=== PATIENT | female | born 1965 | race Hispanic/Latino ===

== ENCOUNTER 2018-02-10 20:13 | Emergency (ER) | payer OTHER ==
[~2018-02-10 20:13] MED LIST: ISOVUE-370 76%-LOCM 1 ML ONE
[2018-02-10] MEDS ORDERED: methylPREDNISolone Sod Succ/PF 125 MG/2 ML VIAL ONE (21:26)
[2018-02-10] MEDS ORDERED: Famotidine 40 MG/4 ML VIAL SLOW IVP SCH (21:30)
[2018-02-10 22:09] LABS: #Eosinphils 0.1 thou/uL (0.0-0.7); #Lymphocytes 3.2 thou/uL (1.20-3.40); #Monocytes 0.5 thou/uL (0.11-0.59); #Neutrophils 3.5 thou/uL (1.40-6.50); %Basophils 0.3 % (0.0-1.0); %Monocytes 7.2 % (0.0-10.0); %Neutrophils 47.5 % (42.0-75.0); Hemoglobin 12.8 g/dL (12.0-16.0); Mean Corpuscular HGB CONC 32.8 g/dL (32.0-36.0); Mean Corpuscular Hemoglobin 30.2 pg (27.0-31.0); Mean Corpuscular Volume 92.1 fl (81.0-99.0); Mean Platelet Volume 6.8 fL (7.4-10.4); Platelet Count 326 thou/uL (130-400); RBC Distribution Width 12.4 % (11.5-14.5); Red Blood Cell (RBC) Count 4.24 mill/uL (4.20-5.40); White Blood Cell (WBC) Count 7.4 thou/uL (4.8-10.8)
[2018-02-10 22:34] LABS: ALT (SGPT) 46 U/L (8-55); AST (SGOT) 42 U/L (5-34); Albumin 4.4 g/dL (3.5-5.0); Alkaline Phosphatase 78 U/L (40-150); Anion Gap 18 mmol/L (10-20); BUN (Urea Nitrogen) 23 mg/dL (9.8-20.1); Bilirubin, Total Less than 0.2 mg/dL (0.2-1.2); Calc. Creatinine Clearance 0 mL/min (70-130); Calcium 9.9 mg/dL (7.8-10.44); Carbon Dioxide 21 mmol/L (22-29); Chloride 105 mmol/L (98-107); Estimated GFR-MDRD 82; Globulin 3.2 g/dL (2.4-3.5); Glucose 127 mg/dL (70-105); Potassium 4.2 mmol/L (3.5-5.1); Protein, Total 7.6 g/dL (6.0-8.3); Sodium 140 mmol/L (136-145)
--- NOTE | 2018-02-11 09:10 | CT ---
PRELIMINARY REPORT/[facility]/EMERGENTY AFTER-HOURS PROCEDURE CT Maxillofacial With Intravenous Contrast CLINICAL HISTORY: 52 years old, female; Pain; Face pain; Patient HX: Pain, swelling TECHNIQUE: Axial computed tomography images of the face with intravenous contrast. CONTRAST: 100 mL of ISOVUE administered intravenously. COMPARISON: No relevant prior studies available. FINDINGS: Bones/joints: No acute fracture. Soft tissues: Mild right cheek swelling Orbits: Unremarkable. Sinuses: Opacified non-dominant right sphenoid sinus IMPRESSION: Mild nonspecific cheek swelling. Findings may be odontogenic in origin. No definite abscess. Right sphenoid sinusitis suspected Thank you for allowing us to participate in the care of your patient. Dictated and Authenticated by: Krzysztof Mccormick MD 02/11/2018 1:14 AM Central Time ([place] & [place]) FINAL REPORT EMERGENCY AFTER HOURS CT FACIAL BONES PERFORMED WITH IV CONTRAST ENHANCEMENT: Date: 02/10/18 HISTORY: Facial swelling. FINDINGS: The visualized brain parenchyma is unremarkable. There is mucosal disease within the right sphenoid a ir cell, extending towards the sphenoethmoid recess region. The remainder of the sinuses appear clear . No fractures are identified. There is scan artifact related to patient's dental hardware. This obscures detail in this region. The re appears to be some minimal right cheek swelling, but I do not see any signs of abscess. It is diff icult to identify any etiology given the artifact. This could be of dental origin. IMPRESSION: 1. Mild right cheek swelling, possibly odontogenic in origin. 2. Right sphenoid sinus disease. This report is in agreement with the preliminary report issued by [facility]. POS: [facility]
== END 2018-02-11 01:55 | disposition home or self-care (01) ==
LOC: ERS 20:13
DX: J32.9 Chronic sinusitis, unspecified (principal); E11.9 Type 2 diabetes mellitus without complications; I10 Essential (primary) hypertension
CPT/HCPCS: 36415; 70487; 80053; 85025; 86850; 86900; 86901; 96361; 96374; 96375; J2930

== ENCOUNTER 2018-02-17 15:14 | Outpatient (CLI) | payer OTHER ==
--- NOTE | 2018-02-20 15:59 | MMO ---
BILATERAL MAMMOGRAMS 02/17/18 HISTORY: Screening mammography. COMPARISON: None are available. Baseline study. FINDINGS: Scattered fibroglandular densities and benign appearing calcifications are apparent. Multiple partial ly obscured oval and nodular hypodense nodules of varying size are present throughout each breast and consistent with benign process. Skin marker indicates scar on the right breast. No dominant mass or suspicious calcifications. Study was evaluated with the assistance of computer aided detection. IMPRESSION: BI-RADS 2: Benign Finding(s) Routine annual screening mammography (for women over age 40). POS: [facility]
== END 2018-02-17 15:15 | disposition home or self-care (01) ==
LOC: SCSMAMMO 15:14
PROVIDERS: ATTEND Family Medicine
DX: Z12.31 Encounter for screening mammogram for malignant neoplasm of breast (principal)
CPT/HCPCS: 77067

== ENCOUNTER 2019-09-10 23:36 | Emergency (ER) | payer OTHER ==
--- NOTE | 2019-09-11 00:02 | RAD ---
Chest one view HISTORY: Chest pain. FINDINGS: No comparison. Cardiac silhouette is magnified by projection. Pulmonary vasculature is unre markable. Mediastinum is midline. No lobar consolidation or evidence of pneumothorax. quality assurance monitor body leads overlie the chest. IMPRESSION: No active cardiopulmonary abnormalities are demonstrated.
[2019-09-11 00:58] LABS: ALT (SGPT) 41 U/L (8-55); AST (SGOT) 25 U/L (5-34); Albumin 4.6 g/dL (3.5-5.0); Alkaline Phosphatase 107 U/L (40-110); Anion Gap 15 mmol/L (10-20); BUN (Urea Nitrogen) 17 mg/dL (9.8-20.1); Bilirubin, Total 0.2 mg/dL (0.2-1.2); CK (CPK) 176 U/L (29-168); Calc. Creatinine Clearance 0 mL/min (70-130); Calcium 9.6 mg/dL (7.8-10.44); Carbon Dioxide 24 mmol/L (22-29); Chloride 99 mmol/L (98-107); Estimated GFR-MDRD 80; Globulin 2.9 g/dL (2.4-3.5); Glucose 132 mg/dL (70-105); Potassium 3.4 mmol/L (3.5-5.1); Protein, Total 7.5 g/dL (6.0-8.3); Sodium 135 mmol/L (136-145)
[2019-09-11] MEDS ORDERED: Morphine 4 MG/ML VIAL ONE (01:10)
[2019-09-11] MEDS ORDERED: Ondansetron PF 4 MG/2 ML Vial ONE (01:11)
[2019-09-11] MEDS ORDERED: Aspirin Chewable 81 MG TAB ONE (01:11)
[2019-09-11 01:42] LABS: #Basophils 0.1 thou/uL (0.0-0.2); #Eosinphils 0.2 thou/uL (0.0-0.7); #Lymphocytes 2.8 thou/uL (1.20-3.40); #Monocytes 0.7 thou/uL (0.11-0.59); #Neutrophils 6.6 thou/uL (1.40-6.50); %Basophils 0.6 % (0.0-1.0); %Eosinophils 1.7 % (0.0-10.0); %Lymphocytes 27.3 % (21.0-51.0); %Monocytes 6.7 % (0.0-10.0); %Neutrophils 63.7 % (42.0-75.0); Hemoglobin 13.8 g/dL (12.0-16.0); Mean Corpuscular Hemoglobin 31.3 pg (27.0-31.0); Mean Corpuscular Volume 89.5 fL (78.0-98.0); Mean Platelet Volume 6.7 fL (7.4-10.4); Platelet Count 317 thou/uL (130-400); RBC Distribution Width 11.6 % (11.5-14.5); Red Blood Cell (RBC) Count 4.41 mill/uL (4.20-5.40); White Blood Cell (WBC) Count 10.4 thou/uL (4.8-10.8)
== END 2019-09-11 02:55 | disposition home or self-care (01) ==
LOC: ERS 23:36
DX: R07.9 Chest pain, unspecified (principal); E11.9 Type 2 diabetes mellitus without complications; I10 Essential (primary) hypertension; E78.5 Hyperlipidemia, unspecified; Z79.899 Other long term (current) drug therapy
CPT/HCPCS: 36415; 71045; 80053; 82550; 84484; 85025; 93005; 94760; 96374; 96375; J2270; J2405

== ENCOUNTER 2019-11-10 16:37 | Emergency (ER) | payer OTHER ==
[2019-11-10 18:23] LABS: #Basophils 0.1 thou/uL (0.0-0.2); #Eosinphils 0.2 thou/uL (0.0-0.7); #Lymphocytes 2.6 thou/uL (1.20-3.40); #Monocytes 0.5 thou/uL (0.11-0.59); #Neutrophils 3.5 thou/uL (1.40-6.50); %Basophils 1.1 % (0.0-1.0); %Eosinophils 2.5 % (0.0-10.0); %Monocytes 7.3 % (0.0-10.0); %Neutrophils 51.3 % (42.0-75.0); Hemoglobin 14.1 g/dL (12.0-16.0); Mean Corpuscular HGB CONC 33.8 g/dL (32.0-36.0); Mean Corpuscular Hemoglobin 30.7 pg (27.0-31.0); Mean Corpuscular Volume 90.7 fL (78.0-98.0); Mean Platelet Volume 7.1 fL (7.4-10.4); Platelet Count 327 thou/uL (130-400); RBC Distribution Width 11.8 % (11.5-14.5); White Blood Cell (WBC) Count 6.9 thou/uL (4.8-10.8)
[2019-11-10 18:43] LABS: ALT (SGPT) 27 U/L (8-55); AST (SGOT) 22 U/L (5-34); Albumin 4.6 g/dL (3.5-5.0); Alkaline Phosphatase 100 U/L (40-110); Anion Gap 14 mmol/L (10-20); BUN (Urea Nitrogen) 11 mg/dL (9.8-20.1); Bilirubin, Total 0.2 mg/dL (0.2-1.2); Calc. Creatinine Clearance 0 mL/min (70-130); Calcium 9.6 mg/dL (7.8-10.44); Carbon Dioxide 31 mmol/L (22-29); Chloride 99 mmol/L (98-107); Estimated GFR-MDRD 78; Globulin 3.2 g/dL (2.4-3.5); Glucose 175 mg/dL (70-105); Potassium 3.7 mmol/L (3.5-5.1); Protein, Total 7.8 g/dL (6.0-8.3); Sodium 140 mmol/L (136-145)
== END 2019-11-10 21:38 | disposition home or self-care (01) ==
LOC: ERS 16:37
DX: N93.9 Abnormal uterine and vaginal bleeding, unspecified (principal); E11.9 Type 2 diabetes mellitus without complications; E78.5 Hyperlipidemia, unspecified; I10 Essential (primary) hypertension; F32.9 Major depressive disorder, single episode, unspecified; Z79.899 Other long term (current) drug therapy
CPT/HCPCS: 36415; 80053; 85025; 86850; 86900; 86901; 99284

== ENCOUNTER 2019-12-21 06:53 | Outpatient (CLI) | payer OTHER ==
[2019-12-21 17:38] LABS: Hemoglobin 13.5 g/dL (12.0-16.0); Mean Corpuscular HGB CONC 34.5 g/dL (32.0-36.0); Mean Corpuscular Hemoglobin 31.4 pg (27.0-31.0); Mean Corpuscular Volume 90.8 fL (78.0-98.0); Platelet Count 317 thou/uL (130-400); RBC Distribution Width 11.8 % (11.5-14.5); Red Blood Cell (RBC) Count 4.29 mill/uL (4.20-5.40); White Blood Cell (WBC) Count 7.3 thou/uL (4.8-10.8)
[2019-12-21 17:59] LABS: Anion Gap 16 mmol/L (10-20); BUN (Urea Nitrogen) 13 mg/dL (9.8-20.1); Calc. Creatinine Clearance 0 mL/min (70-130); Calcium 9.5 mg/dL (7.8-10.44); Carbon Dioxide 28 mmol/L (22-29); Chloride 101 mmol/L (98-107); Estimated GFR-MDRD Greater than 90; Glucose 94 mg/dL (70-105); Potassium 3.5 mmol/L (3.5-5.1); Sodium 141 mmol/L (136-145)
--- NOTE | 2019-12-22 11:58 | EKG ---
Test Reason : Blood Pressure : / mmHG Vent. Rate : 074 BPM Atrial Rate : 074 BPM P-R Int : 150 ms QRS Dur : 078 ms QT Int : 416 ms P-R-T Axes : 068 035 041 degrees QTc Int : 461 ms Normal sinus rhythm Normal ECG No previous ECGs available Confirmed by DR. Elsy CANDELARIO ([id number]) on 12/22/2019 11:58:37 AM Referred By: GAIL Confirmed By:DR. Elsy CANDELARIO
== END 2019-12-21 06:54 | disposition home or self-care (01) ==
LOC: LABBT 06:53
PROVIDERS: ATTEND Obstetrics & Gynecology
DX: Z01.818 Encounter for other preprocedural examination (principal); T83.711A Erosion of implanted vaginal mesh to surrounding organ or tissue, initial encounter
CPT/HCPCS: 80048; 85027; 86850; 86900; 86901; 93005; 93010

== ENCOUNTER 2019-12-22 08:54 | Day surgery (SDC) | payer OTHER ==
--- NOTE | 2019-12-20 13:52 | HP ---
HISTORY OF PRESENT ILLNESS: Ms. Pleitez is a 54-year-old female with a history of previous hysterectomy with genital prolapse issues, where she underwent hysterectomy prolapse surgery in [place], [place]. She is unsure exactly what was done, but she recently reported to my office on November 17 for complaint of vaginal bleeding and discomfort and also pain that her and her are experiencing when she was having intercourse. This problem has been ongoing for over 6 months. I saw the patient in my office on the 17 of November and on exam, she has evidence of a mesh erosion on the posterior vagina and the upper mid portion of the posterior vagina. PAST MEDICAL HISTORY: Significant for hypertension, hyperlipidemia, and diabetes. As noted, hysterectomy lead to pelvic prolapse, what appears to mesh placement. CURRENT MEDICATIONS: 1. Atorvastatin 40 mg. 2. Hydrochlorothiazide 12.5 mg. 3. Metformin 1000 mg daily. 4. Premarin vaginal cream was started, 1 g three times a week for a month due to the prolapse for the mesh erosion. FAMILY HISTORY: Noncontributory. SOCIAL HISTORY: Nonsmoker. No excessive alcohol use or drug use. PHYSICAL EXAMINATION: VITAL SIGNS: Height 5 feet 4 inches, weight 136, and BMI 26.6. Blood pressure 122/88, pulse 91, respirations 18, and O2 saturation on room air 99%. HEENT: Within normal limits. CHEST: Clear to auscultation. HEART: Regular rate and rhythm. S1 and S2, heart sounds. No murmurs, rubs, or gallops. ABDOMEN: Soft, nontender, and nondistended. PELVIC: Vulva and vagina had no lesions. She is status post hysterectomy with absent cervix. On evaluation of the vagina, there was an obvious mesh erosion noted in the upper mid half of the vagina on the posterior wall. There are no pelvic masses on exam. No parametrial masses. RECTAL: Exam was performed and no evidence of mesh erosion into the rectal mucosa was appreciated. ASSESSMENT: This is a 54-year-old female with mesh erosion in posterior vaginal wall. PLAN: For excision of mesh erosion in the operating room. The patient has been on 1 g of Premarin cream three times weekly for over 4 weeks preoperatively. The risk of the procedure have been discussed in detail. Possibility including infection, inadvertent entry into the rectum necessitating further repair, also recurrence of the mesh erosion. Plan is for the surgery to be on 12/22/2019. Job ID: [id number]
[2019-12-21 16:34] VITALS: BMI 27.4
[2019-12-22] MEDS ORDERED: Lidocaine 1% PF 5 ML VIAL ONE (09:21)
[2019-12-22] MEDS ORDERED: Dexamethasone 20 MG/5 ML VIAL ONE (09:21)
[2019-12-22] MEDS ORDERED: Ondansetron PF 4 MG/2 ML Vial ONE (09:21)
[2019-12-22] MEDS ORDERED: PROPOFOL 200 MG/20 ML VIAL ONE (09:21)
[2019-12-22] MEDS ORDERED: PHENYLEPHRINE-NS 100 MCG/ML 10 ML SYRINGE ONE (09:21)
[2019-12-22] MEDS ORDERED: Gabapentin 300 MG CAP ONE (09:39)
[2019-12-22] MEDS ORDERED: Famotidine/PF 20 mg/2ml Vial ONE (09:39)
[2019-12-22] MEDS ORDERED: Lidocaine 1% w/Epinephrine 1:100K 20 ML VIAL ONE (12:10)
[2019-12-22] MEDS ORDERED: Fentanyl 100 MCG/2 ML VIAL ONE (12:13)
[2019-12-22] MEDS ORDERED: HYDROcodone/Acetaminophen 5/325 mg Tablet ONE (17:02)
--- NOTE | 2019-12-22 20:09 | OP ---
DATE OF PROCEDURE: 12/22/2019 PREOPERATIVE DIAGNOSES: 1. A 54-year-old [place] female, with history of hysterectomy and previous pelvic prolapse surgical repair in [place], [place]. 2. Recent noted posterior vaginal mesh erosion. POSTOPERATIVE DIAGNOSES: 1. A 54-year-old [place] female, with history of hysterectomy and previous pelvic prolapse surgical repair in [place], [place]. 2. Recent noted posterior vaginal mesh erosion. PROCEDURE PERFORMED: Excision of vaginal mesh erosion in the posterior mid vagina and repair of posterior vaginal wall defect. SERVICE PARTS DRIVER SURGEON: Florence Quiñonez PA-C. ANESTHESIA: General endotracheal. ESTIMATED BLOOD LOSS: Less than 10 mL. COMPLICATIONS: None. FINDINGS: 1. There was approximately 1.5 x 1 cm posterior vaginal mesh erosion that was in the midportion of the posterior vaginal wall midway in the vault. 2. On exam under anesthesia, there was no evidence of rectal mucosal mesh involvement. Rectum was intact post mesh excision. DISPOSITION: Recovery room, then plan for discharge home from Day Stay. DESCRIPTION OF PROCEDURE: The patient previously received informed consent in regard to surgery. She was taken back to the operating room, where she received a general endotracheal anesthetic agent. She was placed in the dorsal lithotomy position with the use of Boby stirrups. The patient had voided prior to arrival in the operating room. An exam under anesthesia was performed with a noted mesh in the midportion of the posterior vaginal wall. A rectal exam confirmed no obvious involvement of the mesh in the rectal mucosa. The edges of the vaginal mucosa around the eroded mesh were grasped with Allis clamps. The mucosa was infiltrated with 1% lidocaine with epinephrine for hemostasis and also hydrodissection. I then was able to dissect the eroded vaginal mesh underneath the vaginal mucosa that had been hydrodissected with the Metzenbaum scissors. Freeing the exposed mesh, the mesh was trimmed down to the endopelvic fascial level. Once the mesh had been removed and the area underneath the planned closure of the vaginal mucosa was free of any mesh remnant, rectal exam with an additional glove was performed. There was no evidence of any rectal injury noted on exam, and no evidence of any further mesh in this region. I then exchanged the dirty glove and then we closed the vaginal wall defect with 2-0 Vicryl suture incorporating some of the endopelvic fascia for hemostasis and closure of the posterior vaginal mucosa. This was closed with interrupted [id number] sutures. Good hemostasis was confirmed. A moistened Kerlix was then placed in the vagina. The patient was transferred to recovery room in stable condition. Plan for discharge home later today from Day Stay. Job ID: [id number]
== END 2019-12-22 17:26 | disposition home or self-care (01) ==
LOC: SDC 08:54
PROVIDERS: ATTEND Obstetrics & Gynecology
PROC: 0UPH7YZ Removal of Other Device from Vagina and Cul-de-sac, Via Natural or Artificial Opening (ICD-10-PCS; principal; 2019-12-22)
DX: T83.711A Erosion of implanted vaginal mesh to surrounding organ or tissue, initial encounter (principal); I10 Essential (primary) hypertension; E78.5 Hyperlipidemia, unspecified; E11.9 Type 2 diabetes mellitus without complications; Z79.84 Long term (current) use of oral hypoglycemic drugs; Z79.899 Other long term (current) drug therapy
CPT/HCPCS: J0690; J1100; J2001; J2405; J2704; J3010; S0028

== ENCOUNTER 2021-03-29 14:19 | Outpatient (CLI) | payer OTHER | END 2021-03-29 14:20 | disposition home or self-care (01) | LOC: BICULT 14:19 | PROVIDERS: ATTEND Family Medicine | DX: I88.9 Nonspecific lymphadenitis, unspecified (principal) | CPT/HCPCS: 76536 ==

== ENCOUNTER 2021-08-10 21:18 | Emergency (ER) | payer OTHER ==
[2021-08-10 21:59] LABS: #Basophils 0.1 thou/uL (0.0-0.2); #Eosinphils 0.2 thou/uL (0.0-0.7); #Lymphocytes 3.4 thou/uL (1.20-3.40); #Monocytes 0.5 thou/uL (0.11-0.59); #Neutrophils 3.1 thou/uL (1.40-6.50); %Basophils 0.7 % (0.0-1.0); %Eosinophils 2.5 % (0.0-10.0); %Monocytes 6.6 % (0.0-10.0); %Neutrophils 43.1 % (42.0-75.0); Hemoglobin 13.6 g/dL (12.0-16.0); Mean Corpuscular HGB CONC 34.1 g/dL (32.0-36.0); Mean Corpuscular Hemoglobin 30.6 pg (27.0-31.0); Mean Corpuscular Volume 89.8 fL (78.0-98.0); Mean Platelet Volume 6.9 fL (7.4-10.4); Platelet Count 352 thou/uL (130-400); RBC Distribution Width 11.8 % (11.5-14.5); Red Blood Cell (RBC) Count 4.46 mill/uL (4.20-5.40); White Blood Cell (WBC) Count 7.2 thou/uL (4.8-10.8)
[2021-08-10] MEDS ORDERED: Acetaminophen 500 MG TAB ONE (22:10)
[2021-08-10 22:19] LABS: ALT (SGPT) 42 U/L (8-55); AST (SGOT) 32 U/L (5-34); Albumin 4.1 g/dL (3.5-5.0); Alkaline Phosphatase 97 U/L (40-110); Anion Gap 13 mmol/L (10-20); BUN (Urea Nitrogen) 11 mg/dL (9.8-20.1); Bilirubin, Total 0.2 mg/dL (0.2-1.2); Calc. Creatinine Clearance 0 mL/min (70-130); Calcium 9.6 mg/dL (7.8-10.44); Carbon Dioxide 29 mmol/L (22-29); Chloride 101 mmol/L (98-107); Globulin 3.3 g/dL (2.4-3.5); Glucose 205 mg/dL (70-105); Potassium 3.2 mmol/L (3.5-5.1); Protein, Total 7.4 g/dL (6.0-8.3); Sodium 140 mmol/L (136-145)
[2021-08-10] MEDS ORDERED: Ketorolac Tromethamine 30 MG/ML VIAL ONE (22:46)
== END 2021-08-10 23:53 | disposition home or self-care (01) ==
LOC: ERS 21:18
DX: R51.9 Headache, unspecified (principal); I10 Essential (primary) hypertension; E11.9 Type 2 diabetes mellitus without complications; E78.5 Hyperlipidemia, unspecified; Z79.84 Long term (current) use of oral hypoglycemic drugs; Z79.899 Other long term (current) drug therapy
CPT/HCPCS: 70450; 80053; 85025; 96374; J1885

== ENCOUNTER 2022-11-14 14:15 | Outpatient (CLI) | payer OTHER | END 2022-11-14 14:16 | disposition home or self-care (01) | LOC: ULT 14:15 | PROVIDERS: ATTEND Student in an Organized Health Care Education/Training Program | DX: R22.1 Localized swelling, mass and lump, neck (principal); E04.2 Nontoxic multinodular goiter | CPT/HCPCS: 76536 ==

== ENCOUNTER 2023-01-28 13:09 | Day surgery (SDC) | payer OTHER ==
[2023-01-28] MEDS ORDERED: Sodium Bicarbonate 2.5 MEQ/5 ML VIAL ONE (13:20)
[2023-01-28] MEDS ORDERED: Lidocaine 1% PF 5 ML VIAL ONE (13:20)
[2023-01-28 15:26] VITALS: BP 131/80
== END 2023-01-28 14:45 | disposition home or self-care (01) ==
LOC: ULT 13:09
PROVIDERS: ATTEND Student in an Organized Health Care Education/Training Program
PROC: 0GBG3ZX Excision of Left Thyroid Gland Lobe, Percutaneous Approach, Diagnostic (ICD-10-PCS; principal; 2023-01-28)
DX: E04.1 Nontoxic single thyroid nodule (principal); I10 Essential (primary) hypertension; E78.5 Hyperlipidemia, unspecified; E11.9 Type 2 diabetes mellitus without complications; Z79.84 Long term (current) use of oral hypoglycemic drugs; Z79.82 Long term (current) use of aspirin; Z79.899 Other long term (current) drug therapy
CPT/HCPCS: 10005; 88173; 88305

== ENCOUNTER 2023-06-03 14:16 | Outpatient (CLI) | payer OTHER | END 2023-06-03 14:17 | disposition home or self-care (01) | LOC: BICMAMMO 14:16 | PROVIDERS: ATTEND Student in an Organized Health Care Education/Training Program | DX: N64.4 Mastodynia (principal) | CPT/HCPCS: 77066; G0279 ==

== ENCOUNTER 2023-07-07 23:04 | Emergency (ER) | payer OTHER | END 2023-07-07 23:21 | disposition left against medical advice (07) | LOC: ERS 23:04 | DX: Z53.21 Procedure and treatment not carried out due to patient leaving prior to being seen by health care provider (principal) ==

== ENCOUNTER 2023-10-14 14:38 | Outpatient (CLI) | payer OTHER | END 2023-10-14 14:39 | disposition home or self-care (01) | LOC: BICMAMMO 14:38 | PROVIDERS: ATTEND Nurse Practitioner Family | DX: N64.4 Mastodynia (principal) | CPT/HCPCS: G0279 ==

== ENCOUNTER 2023-11-25 12:58 | Outpatient (CLI) | payer OTHER | END 2023-11-25 12:59 | disposition home or self-care (01) | LOC: BICRAD 12:58 | PROVIDERS: ATTEND Nurse Practitioner Women's Health | DX: M25.561 Pain in right knee (principal); M25.562 Pain in left knee; M25.461 Effusion, right knee; M17.12 Unilateral primary osteoarthritis, left knee ==

== ENCOUNTER 2023-12-20 17:18 | Emergency (ER) | payer OTHER ==
[2023-12-20] MEDS ORDERED: Ketorolac Tromethamine 30 MG (1 mL) VIAL ONE (18:41)
[2023-12-20] MEDS ORDERED: Metoclopramide HCl 10 MG TAB ONE (18:42)
== END 2023-12-20 19:48 | disposition home or self-care (01) ==
LOC: ERS 17:18
DX: G43.909 Migraine, unspecified, not intractable, without status migrainosus (principal); I10 Essential (primary) hypertension; E11.9 Type 2 diabetes mellitus without complications; Z79.84 Long term (current) use of oral hypoglycemic drugs; Z79.82 Long term (current) use of aspirin
CPT/HCPCS: 70450; 72125; 96372; J1885

== ENCOUNTER 2024-05-12 05:19 | Emergency (ER) | payer OTHER ==
[2024-05-12 06:15] LABS: Influenza A by NAA Not Detected (NotDetected); Influenza B by NAA Not Detected (NotDetected); SARS-CoV-2 NAA Rapid Test DETECTED (NotDetected)
== END 2024-05-12 07:13 | disposition home or self-care (01) ==
LOC: ERS 05:19
DX: U07.1 COVID-19 (principal); I10 Essential (primary) hypertension; E11.9 Type 2 diabetes mellitus without complications; Z55.6 Problems related to health literacy; Z75.8 Other problems related to medical facilities and other health care
CPT/HCPCS: 71046; 87081; 87430